=== PATIENT | female | born 1980 | race Two or more races ===

== ENCOUNTER 2021-04-09 13:47 | Emergency (ER) | payer OTHER ==
[~2021-04-09] VITALS: Ht 165.1 cm; Wt 54.4 kg
[~2021-04-09 13:47] MED LIST: AVAPRO300 MG PO; CARDURA XL8 MG PO; CATAPRES0.3 MG PO; FOLIC ACID0.8 M1 PO; IRON325 MG PO; MILLIPRED5 MG PO; NIFEDIPINE20 MG PO; TRANDATE300 MG PO
[2021-04-09] MEDS ORDERED: MILLIPRED5 MG PO (14:03)
[2021-04-09] MEDS ORDERED: VITAMIN B-121000 MC4 PO (14:04)
[2021-04-09] MEDS ORDERED: BIOTIN10 MG PO (14:04)
[2021-04-09] MEDS ORDERED: VITAMIN E400 UNI5 PO (14:04)
[2021-04-23] MEDS ORDERED: DERMOPLAST PAIN78 GM TOP (17:00)
[2021-04-23] MEDS ORDERED: NEURONTIN300 MG PO (17:00)
[2021-04-23] MEDS ORDERED: ULTRAM50 MG PO (17:00)
[2021-04-23] MEDS ORDERED: PROCTOZONE-HC30 GM RECTAL (17:01)
== END 2021-04-09 17:25 | disposition home or self-care (01) ==
LOC: ER 13:47
DX: D50.0 Iron deficiency anemia secondary to blood loss (chronic) (principal)

== ENCOUNTER → 2021-04-23 | Day surgery (SDC) | payer OTHER ==
[~2021-04-23] MED LIST changes: +BIOTIN10 MG PO; +DERMOPLAST PAIN78 GM TOP; +NEURONTIN300 MG PO; +PROCTOZONE-HC30 GM RECTAL; +ULTRAM50 MG PO; +VITAMIN B-121000 MC4 PO; +VITAMIN E400 UNI5 PO
== END | disposition home or self-care (01) ==
LOC: ADM 04-04 11:15 → CIR.AMB 04-09 07:00
PROVIDERS: ATTEND Surgery
DX: D01.3 Carcinoma in situ of anus and anal canal (principal); Z20.822 Contact with and (suspected) exposure to COVID-19

== ENCOUNTER → 2024-10-03 | Emergency (ER) | payer OTHER ==
[~2024-10-03] VITALS: Ht 152.4 cm; Wt 63.5 kg
[~2024-10-03] MED LIST changes: +0.9 % SODIUM CHLORIDE 1,000 ML IV SCH; +CIPROFLOXACIN IN 5 % DEXTROSE 400 MG/200 ML PIGGYBAG IV ONE; +CLEVIDIPINE BUTYRATE 50 MG/100 ML VIAL IV SCH; +CLONIDINE HCL 0.1 MG TABLET PO ONE; +DIPHENHYDRAMINE HCL 50 MG/ML VIAL 1ML ONE; +ENALAPRILAT DIHYDRATE 1.25 MG/ML VIAL IV ONE; +ENALAPRILAT DIHYDRATE 2.5 MG/2 ML VIAL IV ONE; +FAMOTIDINE/PF 20 MG/2 ML VIAL IV PUSH SCH; +FAMOTIDINE/PF 20 MG/2 ML VIAL ONE; +LABETALOL HCL 100 MG/20 ML ML IV PUSH ONE; +LABETALOL HCL 100 MG/20 ML ML ONE; +LABETALOL HCL 20MG/4ML SYRINGE IV ONE; +LIDOCAINE HCL VISCOUS 20MG/ML BLIST 15ML MM ONE; +METRONIDAZOLE/SODIUM CHLORIDE 500 MG/100 ML PIGGYBACK IV ONE; +MORPHINE SULFATE 4 MG/ML VIAL IV ONE; +MORPHINE SULFATE 4 MG/ML VIAL IV STA; +NIFEDIPINE 60 MG TAB.SA.OSM PO STA; +ONDANSETRON HCL 2 MG/ML VIAL IV ONE; +ONDANSETRON HCL 2 MG/ML VIAL ONE; +cloNIDine HCL 0.3 MG TABLET PO ONE; +cloNIDine HCL 0.3 MG TABLET PO STA; +hydrALAZINE HCL 20 MG VIAL IV STA; +hydrALAZINE HCL 20 MG VIAL ONE
[2024-10-03 20:05] LABS: HEMATOCRIT 28.6 % (36.0-45.00); HEMOGLOBIN 9.3 g/dL (12.0-15.00); MEAN CELL VOLUME 96.2 fL (80.00-100.00); MEAN CORPUSCULAR HEMOGLOBIN 31.2 pg (27.00-32.0); MEAN CORPUSCULAR HGB CONC 32.4 g/dl (32.0-36.0); PLATELET COUNT 124 K/uL (150-450); RED BLOOD COUNT 2.97 M/uL (4.00-6.00); RED CELL DISTRIBUTION WIDTH 17.4 % (11.5-14.5)
[2024-10-03 20:25] LABS: INR 1.1; PARTIAL THROMBOPLASTIN TIME 32.9 SECONDS (22.0-34.0); PROTHROMBIN TIME 11.9 SECONDS (9.0-11.5)
[2024-10-03 20:41] LABS: BILIRUBIN TOTAL 0.59 mg/dL (0.3-1.2); BILIRUBIN,CONJUGATED 0.23 mg/dL (0.0-0.2); BILIRUBIN,UNCONJUGATED 0.36 mg/dL (0.0-0.6); CALCIUM 9.3 mg/dL (8.5-10.1); GFR 5.45; GLOBULINA 4.4 G/DL (2.4-3.5); POTASSIUM 5.48 mEq/L (3.5-5.1); TOTAL PROTEIN 7.4 gm/dL (6.4-8.2)
[2024-10-03 20:49] LABS: CREATININE SERUM 8.05 mg/dL (0.55-1.02)
[2024-10-04 14:35] LABS: HEMATOCRIT 23.7 % (36.0-45.00); MEAN CELL VOLUME 96.2 fL (80.00-100.00); MEAN CORPUSCULAR HGB CONC 33.4 g/dl (32.0-36.0); RED BLOOD COUNT 2.47 M/uL (4.00-6.00); RED CELL DISTRIBUTION WIDTH 17.8 % (11.5-14.5)
[2024-10-04 14:57] LABS: ALBUMIN 2.5 gm/dL (3.4-5.0); BILIRUBIN TOTAL 0.55 mg/dL (0.3-1.2); CALCIUM 8.7 mg/dL (8.5-10.1); GFR 4.89; GLOBULINA 3.7 G/DL (2.4-3.5); POTASSIUM 5.84 mEq/L (3.5-5.1); TOTAL PROTEIN 6.2 gm/dL (6.4-8.2)
[2024-10-04 15:06] LABS: CREATININE SERUM 8.85 mg/dL (0.55-1.02)
[2024-10-04 15:33] LABS: MEAN CORPUSCULAR HEMOGLOBIN 31.9 pg (27.00-32.0)
[2024-10-04 15:35] LABS: PLATELET COUNT 109 K/uL (150-450)
[2024-10-04 15:36] LABS: HEMOGLOBIN 7.9 g/dL (12.0-15.00)
== END | disposition designated cancer center or children's hospital (05) ==
LOC: ER 18:47
PROVIDERS: General Practice
DX: R10.9 Unspecified abdominal pain (principal); I12.0 Hypertensive chronic kidney disease with stage 5 chronic kidney disease or end stage renal disease; N18.6 End stage renal disease; D63.1 Anemia in chronic kidney disease; Z99.2 Dependence on renal dialysis; K56.699 Other intestinal obstruction unspecified as to partial versus complete obstruction; R18.8 Other ascites
CPT/HCPCS: 36415; 74176; 96365; 96366; 99285; J2270; J2405; J3490; J7030